=== PATIENT | male | born 1990 | race African-American/Black ===

== ENCOUNTER → 2016-08-04 | Outpatient (CLI) | payer OTHER ==
[~2016-08-04] MED LIST: CELE20TA OR; MELOXICAM 15 MG OR; Meloxicam; TRAM50TA2 OR; TRAZ50TA OR
--- NOTE | 2016-08-04 09:54 | REP ---
Peter area, right elbow for views: There are no comparisons. Mineralization and joint spaces are normal. There is no fracture or dislocation. I suspect there is a joint effusion. There are no calcifications or foreign bodies. Impression: Probable joint effusion. Otherwise, negative right elbow. Signed by García Pang MD 08/04/2016 09:45 A
== END ==
LOC: M WUC 09:28
PROVIDERS: ATTEND Physician Assistant
DX: M25.521 Pain in right elbow (principal)